=== PATIENT | male | born 1960 | race African-American/Black ===

== ENCOUNTER 2019-05-04 08:17 | Observation (INO) | payer OTHER, SELFPAY ==
[2019-05-04] VITALS (8 sets, daily range): BP systolic 125–151; BP diastolic 77–88; PULSE 89–128; RESP 16–26; TEMP 36.7–37.3; O2SAT 99–100; BMI 22.7
--- NOTE | 2019-05-04 08:30 | ED.GENADULT ---
HPI - General Adult General Chief complaint: Unspecified Stated complaint: LIGHTHEADED/BLEEDING STOMA Time Seen by Provider: 05/04/19 08:30 Source: patient Mode of arrival: EMS Limitations: no limitations History of Present Illness HPI narrative: Pt is 58 y/o male who presents to the ED, via EMS, with c/o blood in his colostomy bag. Pt states that he woke this morning and noticed blood on his bed sheets and when he checked his colostomy bag it was full of blood. He states that it took about 5-8 minutes until the bleeding stopped. Pt notes that he felt lightheaded/dizzy after the bleeding stopped. Pt has been having problems with his stoma and he saw his GI specialist 2 weeks ago about it and is supposed to get in contact with a home health nurse to help him manage it. He notes that he was having pain at his stoma site that subsided when he was resting. Pt has a H/o stage 4 colon CA and he states he had the colostomy, but no colon resection. He is supposed to see his oncologist, Dr. Rea in 2 days. complaint: Blood in colostomy bag Location: abdomen (stoma site) Associated symptoms: other (pain to stoma site) Treatments prior to arrival: none Related Data Home Medications Medication Instructions Recorded Confirmed morphine 15 mg PO Q12H 05/04/19 multivitamin [Tab-A-Kaden] 1 tablet PO DAILY 05/04/19 ondansetron 4 mg PO Q6H PRN 05/04/19 oxycodone-acetaminophen [Percocet] 1 tablet PO Q4H PRN 05/04/19 prochlorperazine maleate 10 mg PO Q4H PRN 05/04/19 ranitidine HCl 150 mg PO BID 05/04/19 Allergies Allergy/AdvReac Type Severity Reaction Status Date / Time No Known Allergies Allergy Verified 05/04/19 08:27 Review of Systems Review of Systems: All systems reviewed & are unremarkable except as noted in HPI and below Cardiovascular: Cardiovascular: Reports lightheadedness Gastrointestinal: Gastrointestinal: Reports other (blood in colostomy, pain to stoma) Neurologic: Reports dizziness PMFSH Past Medical History Medical History (Updated 05/04/19 @ 15:36 by Danielle Montiel MD) Colon cancer Colostomy in place Surgical History Surgical History (Updated 05/04/19 @ 10:20 by Leandra Lim) H/O colostomy H/O hernia repair Social History Social History (Updated 05/04/19 @ 10:20 by Leandra Lim) Smoking status: Former smoker Tobacco type: cigarettes Alcohol intake: never Substance use: never Gender identity (if verbalized by the patient): Male Spiritual care concerns: Yes Agree to blood products: No Comments Pt does not have a PCP. His oncologist is Dr. Rea in [facility]. Exam Const: General: cooperative, no acute distress and alert Nutritional Appearance: well nourished Orientation/consciousness: patient oriented x3 Limitations: no limitations HENMT: Mouth: Yes lip normal and Yes moist mucous membranes Chest: Chest palpation & inspection: other (port site to lt subclavian with no swelling or erythema) Resp: Effort & Inspection: normal respiratory effort Auscultation: clear to auscultation bilaterally Cardio: Rate: tachycardic (mildly) Rhythm: regular rhythm Heart sounds: no murmurs GI: GI Palp: Yes Soft to palpation and No Tenderness to palpation present (GI) Auscultation: normal bowel sounds Other: stoma to RLQ with no bleeding present, with a small amount of brown soft stool. Back/Spine/Pelvis: Back: no CVA tenderness Skin: General skin exam: normal color Neuro: General: patient oriented x3 Cognition (Neuro): normal cognition Speech: normal speech Extrem: General: normal to inspection, full ROM and no clubbing, cyanosis or edema Psych: Mental Status: mental status grossly normal Affect: normal affect Attitude: cooperative Course Course Emergency Course: Patient with report of bleeding from his colostomy stoma that subsided prior to arrival. No bleeding in the emergency department. Normal brown soft stool emanating from stoma. Patient has had drop
[2019-05-04 09:22] LABS: Basophils Absolute Auto 0.1 K/mm3 (0.0-0.1); Basophils Percent Auto 0.9 % (0.2-1.2); Eosinophils Absolute Auto 0.2 K/mm3 (0-0.3); Eosinophils Percent Auto 2.4 % (0-4.4); Hematocrit 25.8 % (42.0-52.0); Hemoglobin 8.1 g/dL (14.0-18.0); Immature Granulocyte Absolute 0.05 K/mm3 (0.00-0.031); Immature Granulocyte Percent A 0.7 % (0-0.5); Immature Platelet Fraction Pct 1.5 % (0.9-11.2); Lymphocytes Absolute Auto 2.09 K/mm3 (0.9-3.2); Mean Corpuscular HGB Conc 31.4 g/dl (32-36); Mean Corpuscular Volume 76.3 fl (80-100); Monocytes Absolute Auto 1.1 K/mm3 (0.1-0.6); Monocytes Percent Auto 16.1 % (2.6-8.5); Neutrophils Absolute Auto 3.3 K/mm3 (1.3-6.7); Neutrophils Percent Auto 48.9 % (45.5-73.1); Platelet Count Result 158 k/mm3 (150-375); Red Blood Count 3.38 M/mm3 (4.6-6.20); Red Cell Distribution Width 20.6 % (11.5-14.5); White Blood Count 6.8 K/mm3 (4.5-10.0)
[2019-05-04 09:30] LABS: INR 1.2; Prothrombin Time 14.9 Seconds (11.1-14.7)
[2019-05-04 09:31] LABS: Partial Thromboplastin Time 39.3 SECONDS (22.3-36.8)
[2019-05-04 09:40] LABS: Alanine Aminotransferase 26 U/L (4-50); Albumin Level 3.3 g/dL (3.5-5.1); Alkaline Phosphatase 221 U/L (38-126); Aspartate Amino Transferase 52 U/L (17-59); Blood Urea Nitrogen 9 mg/dL (9-20); Carbon Dioxide 22 mmol/L (22-30); Chloride 109 mmol/L (98-107); Estimated CRCL calculation 68 ml/min; Estimated Glomerular Filt Rate > 60; Glucose 97 mg/dL (75-110); Potassium 3.8 mmol/L (3.4-5.0); Sodium 140 mmol/L (137-145)
[2019-05-04] MEDS: LACTATED RINGERS 1,000 ML 999 ML IV CONT (09:45)
[2019-05-04 10:06] LABS: Add Urine Microscopic? YES; Appearance Urine Cloudy (Clear); Bilirubin Urine 1+ (Negative); Blood Urine Negative (Negative); Color Urine Amber (Yellow); Glucose Urine UA Negative (Negative); Hyaline Casts Urine 50+ /lpf; Ketones Urine Trace mg/dL (Negative); Leukocyte Esterase Ur Negative LEU/UL (Negative); Mucus Urine Heavy /lpf; Nitrate Urine Negative (Negative); Protein Urine 3+ mg/dL (Negative); RBC Urine 0-2 /hpf (0-2); Specific Grav Ur 1.028 (1.001-1.035)
[2019-05-04 12:39] LABS: Hematocrit 25.1 % (42.0-52.0); Hemoglobin 7.9 g/dL (14.0-18.0)
--- NOTE | 2019-05-04 14:59 | ADMGEN ---
This patient, Emil Crowe, was admitted to 2 Medical Room 260-. Patient/family oriented to hospital policies and general routines including ID bracelet, bed and alarms, visiting hours, pain management, procedures, bathroom and other care routines, personal items, smoking policy, room service/diet, and visiting hours. Valuables list has been completed. Information on how to activate the Rapid Response Team has been discussed. Patient/Family are encouraged to report perceived risks to care and to ask questions if they do not understand what they are told or what they should do.
--- NOTE | 2019-05-04 15:30 | PM.IMHP ---
H&P: HPI History of Present Illness Chief complaint: Bleeding stoma. Narrative: Emil Crowe is a very pleasant 58 year old male currently being treated for stage IV colon cancer who presented to the emergency department earlier this morning via EMS from home for evaluation of bleeding from his stoma. He woke this morning and went to use the restroom and upon his return back to bed he noticed that his shirt was wet. He turned the light on and saw that there was blood on his shirt and on his bed sheets. His ostomy bag was also reportedly full of blood. He removed the bag, and notes that there was blood ?squirting? from the stoma. The bleeding lasted upwards of 8 minutes. Thereafter he was lightheaded/dizzy upon standing and notes being nauseated and diaphoretic. He also mentions that he has been having pain on the right side of the stoma for nearly a month, and fact saw he he his surgeon who recommended him to see a stomal nurse, with an upcoming appointment on May 07. He was tachycardic on arrival to the emergency department he was found to have a hemoglobin of 8.1. The emergency department physician spoke with the patient's oncologist, Dr. Rea, who indicates that his hemoglobin 04/21/2019 was 10.1. He is being admitted in this setting to ensure he does not free bleed. The patient indicates that he is 1 of Jehovah's witnesses and thus cannot take blood products. He is feeling in his usual state of health at this time and has no complaints. Review of Systems Review of Systems: Narrative: Twelve systems were reviewed with pertinent positives and negatives as per HPI. No fever or chills. No recent cold or flu-like symptoms. He has been having issues with epistaxis, and recently body humidifier to see if that would help. No chest pain or shortness of breath. He has a history of hypertension, however lost 100 pounds since diagnosis of colon cancer and is no longer on medication for that. He denies vomiting. No dysuria. Except as documented, all other systems were reviewed and are negative. [facility] Past Medical History Medical History (Updated 05/04/19 @ 17:23 by Marlyn May PA-C) Colon cancer metastasized to multiple sites Imaging 05/04/2019 showed widespread metastatic disease to the lungs, lymph nodes, peritoneum, and T12 vertebral body. Hypertension Surgical History Surgical History (Updated 05/04/19 @ 17:16 by Marlyn May PA-C) Status post colostomy Status post inguinal hernia repair Status post partial colectomy Family History Family History Grandparent Diabetes mellitus Sibling Pulmonary embolism Sibling Cerebrovascular accident Hypertension Emphysema of lung Mother Heart attack Hypertension Father Bronchitis Emphysema of lung COPD (chronic obstructive pulmonary disease) Social History Social History (Updated 05/04/19 @ 17:17 by Marlyn May PA-C) Social History: Mr. Crowe is currently living with his sister in [place]. He designates his sister, Akila Dimas, as his surrogate decision maker. 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 He wishes to be a full code. He is 1 of Jehovah's witnesses. He smoked remotely as a teenager. He drinks alcohol once every couple of months. No drug use. Gender identity (if verbalized by the patient): Male Spiritual care concerns: Yes Agree to blood products: No Meds Home Medications and Allergies Home Medications Medication Instructions Recorded Confirmed Type morphine 15 mg PO Q12H 05/04/19 05/04/19 History multivitamin [Tab-A-Kaden] 1 tablet PO DAILY 05/04/19 05/04/19 History ondansetron 4 mg PO Q6H PRN 05/04/19 05/04/19 History oxycodone-acetaminophen [Percocet] 1 tablet PO Q4H PRN 05/04/19 05/04/19 History prochlorperazine maleate 10 mg PO Q4H PRN 05/04/19 05/04/19 History ranitidine HCl 150 mg PO BID 05/04/19
--- NOTE | 2019-05-04 16:00 | PC.NURSE ---
Patient's sister taking medication bottles home. Morphine and percocet bottles were given to sister to take home.
[2019-05-04 19:30] LABS: Hematocrit 23.9 % (42.0-52.0); Hemoglobin 7.5 g/dL (14.0-18.0)
[2019-05-04] MEDS: FAMOTIDINE 20 MG TABLET PO (20:35)
[2019-05-04] MEDS: SODIUM CHLORIDE NASAL GEL 14.1 GM 1 APPLIC NASAL (20:35)
[2019-05-04] MEDS: MORPHINE SULFATE 15 MG TABCR PO (20:35)
[2019-05-05 00:52] LABS: Hematocrit 19.9 % (42.0-52.0); Hemoglobin 6.2 g/dL (14.0-18.0)
[2019-05-05 06:00] VITALS: BP 107/62; PULSE 82; RESP 20; TEMP 36.7; O2SAT 98
[2019-05-05] MEDS: MORPHINE SULFATE 15 MG TABCR PO ×2 (08:44→20:59)
[2019-05-05] MEDS: FAMOTIDINE 20 MG TABLET PO ×2 (08:44→20:59)
[2019-05-05 09:03] LABS: Hematocrit 22.1 % (42.0-52.0)
[2019-05-05 09:09] LABS: Hemoglobin 6.9 g/dL (14.0-18.0)
[2019-05-05] MEDS: IRON SUCROSE COMPLEX 200 MG in SODIUM CHLORIDE 0.9% IV 50 ML 120 MG IVPB (11:03)
[2019-05-05] MEDS: MULTIVITAMINS THERAPEUTIC TAB (*BKC) 1 TABLET PO (11:03)
[2019-05-05 13:37] VITALS: BMI 22.7
[2019-05-05 14:00] VITALS: BP 144/85; PULSE 82; RESP 17; TEMP 36.6; O2SAT 100
[2019-05-05 14:27] LABS: Hemoglobin 5.8 g/dL (14.0-18.0)
[2019-05-05 14:28] LABS: Hematocrit 18.7 % (42.0-52.0)
--- NOTE | 2019-05-05 16:22 | PM.IMPN ---
Progress Note: A&P Assessment and Plan (1) Stomal bleeding: Status: Acute Assessment and Plan: Bleeding has ceased and he has had normal output since yesterday. No further bleeding overnight or today. He has referral to see a stoma nurse 05/07/19. (2) Anemia: Code(s): D64.9 - Anemia, unspecified Status: Acute Assessment and Plan: Patient has chronic anemia, with reported hemoglobin of 10.1 just 2 weeks ago. Now with evidence of acute blood loss anemia from stomal bleeding. He is a Jehov[employer]'s witnesses and thus will not receive blood products. IV iron x1 today and early tomorrow AM. Monitor H&H q6. H&H may have been diluted from port draw, discussed with nursing to perform venipuncture for H&H draws. (3) Colon cancer metastasized to multiple sites: Code(s): C18.9 - Malignant neoplasm of colon, unspecified Status: Acute Assessment and Plan: Follows with Dr Jeremiah Rea. Noted to have widespread metastatic disease to lungs, lymph nodes, spine. Reports he is still undergoing chemotherapy. He is adamant about making it to his early appointment tomorrow morning with Dr. Rae. Subjective Date/time seen: 05/05/19 1030 Interval history: Mr. Crowe is a 58yo M with metastatic colon cancer admitted for anemia. He noted he was having bleeding from his stoma site two days ago which has now resolved. He reports feeling well today and has no complaints. He is quite eager to get to his oncology appointment early tomorrow morning. He is agreeable to IV iron and staying overnight, may be able to discharge early AM if Hgb is stable. He is a [employer] and cannot receive blood products. He denies chest pain, shortness of breath, nausea, or vomiting. He is tolerating PO intake. Review of Systems Review of Systems: Narrative: Twelve systems were reviewed with pertinent positives and negatives as per HPI. Exam Narrative: Exam Narrative: General: Male walking in the room in no acute distress. HEENT: Normocephalic, EOMI, oral mucosa moist. Cardiovascular: Rate and rhyhtm are regular. Respiratory: Lungs clear to auscultation all key. Non-labored breathing. Abdomen: Soft, non-tender, non-distended, bowel sounds present. Stoma pink, nonbloody stool noted in ostomy bag. Extremities: Peripheral pulses intact. No edema. Neuro: No focal neurological deficits. Speech is clear. Objective Data Vital Signs Vital Signs: Last Vital Signs Temp 97.9 F 05/05/19 14:00 Pulse 82 05/05/19 14:00 Resp 17 05/05/19 14:00 BP 144/85 H 05/05/19 14:00 Pulse Ox 100 05/05/19 14:00 Intake/Output Intake/Output: Intake & Output 05/02/19 05/03/19 05/04/19 05/05/19 23:59 23:59 23:59 23:59 Intake Total 1440 830 Output Total 400 Balance 1440 430 Meds/Results Medications: Active Medications Generic Name Dose Route Start Last Admin Trade Name Freq PRN Reason Stop Dose Admin Famotidine 20 mg 05/04/19 21:00 05/05/19 08:44 Pepcid PO 20 mg Q12HR FREDERIC Administration Heparin Sodium (Beef Lung) 50 units 05/04/19 09:00 05/05/19 08:29 Heparin Flush 50 Units/5 Ml IV PUSH 50 units QAM FREDERIC Administration Heparin Sodium (Beef Lung) 50 units 05/04/19 08:39 Heparin Flush 50 Units/5 Ml IV PUSH PRN PRN after intermittent infusion Heparin Sodium (Beef Lung) 50 units 05/04/19 08:39 05/04/19 15:35 Heparin Flush 50 Units/5 Ml IV PUSH 50 units PRN PRN Administration after blood draws Heparin Sodium (Porcine) 500 units 05/04/19 08:39 Heparin Sod Flush 100 Units/Ml IV PUSH PRN PRN see comments below Iron Sucrose 100 mg/ Sodium 55 mls @ 220 mls/hr 05/06/19 06:00 Chloride IVPB QAM FREDERIC Morphine Sulfate 15 mg 05/04/19 21:00 05/05/19 08:44 Ms Contin PO 15 mg Q12HR FREDERIC Administration Multivitamins Therapeutic
[2019-05-05 17:58] LABS: Hematocrit 19.3 % (42.0-52.0); Hemoglobin 6.1 g/dL (14.0-18.0)
--- NOTE | 2019-05-05 18:06 | PC.NURSE ---
Spoke with Carito from lab regarding patient critical H&H. Per Carito, sample looks diluted. Called SARITA Barrera asked if she would like the lab redrawn due to possible dilution. Per SARITA Barrera have lab redraw H&H lab now via venipuncture and have lab draw other H&H labs via venipuncture.
[2019-05-05 18:21] LABS: Hematocrit 24.7 % (42.0-52.0); Hemoglobin 7.7 g/dL (14.0-18.0)
[2019-05-05] MEDS: SODIUM CHLORIDE NASAL GEL 14.1 GM 1 APPLIC NASAL (21:00)
[2019-05-05 22:00] VITALS: BP 123/70; PULSE 80; RESP 16; TEMP 36.3; O2SAT 100
[2019-05-06 00:36] LABS: Hematocrit 19.6 % (42.0-52.0); Hemoglobin 6.2 g/dL (14.0-18.0)
[2019-05-06 05:30] LABS: Basophils Percent Auto 0.5 % (0.2-1.2); Eosinophils Absolute Auto 0.2 K/mm3 (0-0.3); Eosinophils Percent Auto 3.9 % (0-4.4); Immature Granulocyte Absolute 0.03 K/mm3 (0.00-0.031); Immature Granulocyte Percent A 0.7 % (0-0.5); Immature Platelet Fraction Pct 1.2 % (0.9-11.2); Lymphocytes Absolute Auto 1.51 K/mm3 (0.9-3.2); Lymphocytes Percent Auto 36.6 % (18.3-44.2); Mean Corpuscular HGB Conc 31.6 g/dl (32-36); Mean Corpuscular Hemoglobin 24.1 pg (26-34); Mean Corpuscular Volume 76.3 fl (80-100); Monocytes Absolute Auto 0.6 K/mm3 (0.1-0.6); Neutrophils Absolute Auto 1.8 K/mm3 (1.3-6.7); Neutrophils Percent Auto 43.3 % (45.5-73.1); Platelet Count Result 114 k/mm3 (150-375); Red Blood Count 2.45 M/mm3 (4.6-6.20); Red Cell Distribution Width 19.8 % (11.5-14.5); White Blood Count 4.1 K/mm3 (4.5-10.0)
[2019-05-06 05:41] LABS: Hemoglobin 5.9 g/dL (14.0-18.0)
[2019-05-06 05:42] LABS: Hematocrit 18.7 % (42.0-52.0)
[2019-05-06] MEDS: IRON SUCROSE COMPLEX 100 MG in SODIUM CHLORIDE 0.9% IV 50 ML 220 MG IVPB (05:55)
[2019-05-06 06:00] VITALS: BP 122/60; PULSE 77; RESP 16; O2SAT 100
[2019-05-06] MEDS: MORPHINE SULFATE 15 MG TABCR PO (08:06)
[2019-05-06] MEDS: FAMOTIDINE 20 MG TABLET PO (08:06)
[2019-05-06] MEDS: MULTIVITAMINS THERAPEUTIC TAB (*BKC) 1 TABLET PO (08:06)
--- NOTE | 2019-05-06 21:37 | PM.DS ---
DS: Diagnosis Admitting Diagnosis Admitting Diagnosis: Anemia, unspecified Discharge Diagnosis (1) Stomal bleeding: Status: Acute Assessment and Plan: Date of Service 05/06/19 Mr. Crowe is a 58yo M currently being treated for stage IV colon cancer who presented to the emergency department for evaluation of bleeding from his stoma. He reported his stoma bag was full of blood 05/04/19. He reported he had been having pain near his stoma for a few weeks. He reports he saw his surgeon for this and he is scheduled to see a stoma nurse 05/07/19. Hgb on arrival was 8.1 and fluctuated, as low as 5.8. 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 He was, however, agreeable to receiving IV iron. His oncologist is Dr. Jeremiah Rea and he was scheduled for outpatient appointments 05/05 and 05/06 for chemotherapy. Patient's bleeding had resolved and he was asymptomatic. He was quite eager for discharge so that he could go to his oncology appointment. He received 2 doses of IV iron and last H&H at discharge were 5.9, 18.7 %. Recommend short interval follow-up for repeat labs with results to go to Dr. Rea, or he may order other labs at his appointment today. Patient was hemodynamically stable aside from his H&H with instructions to attend his oncology appointment that was scheduled for a few hours after discharge. Educated on return to ER instructions for worsening or concerning symptoms. Bleeding has ceased and he has had normal output since yesterday. No further bleeding overnight or today. Follow-up with oncology today. He has referral to see a stoma nurse 05/07/19. (2) Anemia: Code(s): D64.9 - Anemia, unspecified Status: Acute Assessment and Plan: Patient has chronic anemia, with reported hemoglobin of 10.1 just 2 weeks ago. Now with evidence of acute blood loss anemia from stomal bleeding. He is a Judaism and thus will not receive blood products. IV iron x 2 prior to discharge. (3) Colon cancer metastasized to multiple sites: Code(s): C18.9 - Malignant neoplasm of colon, unspecified Status: Acute Assessment and Plan: Follows with Dr Jeremiah Rea. Noted to have widespread metastatic disease to lungs, lymph nodes, spine. Reports he is still undergoing chemotherapy. He is adamant about making it to his appointment this morning with Dr. Rea. DS: Summary Time Spent with Patient Time attestation: Total time spent providing and/or coordinating discharge services: 40 minutes Exam Narrative: Exam Narrative: General: Male resting supine in bed in no acute distress. HEENT: Normocephalic, EOMI, oral mucosa moist. Cardiovascular: Rate and rhythm are regular. Respiratory: Lungs clear to auscultation all key. Non-labored breathing. Abdomen: Soft, non-tender, non-distended, bowel sounds present. Stoma pink, nonbloody stool noted in ostomy bag. Extremities: Peripheral pulses intact. No edema. Neuro: No focal neurological deficits. Speech is clear. DS: Data Data Completed and Pending Labs on day of discharge: Labs from last 24 hours 05/06/19 05/06/19 05:12 00:21 WBC 4.1 L RBC 2.45 L Hgb 5.9 L* 6.2 L* Hct 18.7 L* 19.6 L* MCV 76.3 L MCH 24.1 L MCHC 31.6 L RDW 19.8 H Plt Count 114 L MPV TNP Immature Gran % (Auto) 0.7 H Neut % (Auto) 43.3 L Lymph % (Auto) 36.6 Boyle % (Auto) 15.0 H Eos % (Auto) 3.9 Baso % (Auto) 0.5 Lymph # (Auto) 1.51 Boyle # (Auto) 0.6 Eos # (Auto) 0.2 Baso # (Auto) 0.0 Abs Immat Gran (auto) 0.03 Absolute Neuts (auto) 1.8 Absolute Nucleated RBC 0.0 Nucleated RBC % 0.0 % Immature Plt Fraction 1.2 Preliminary micro results at discharge 05/04/19 19:16 Blood Culture - Preliminary Blood 05/04/19 19:16 Blood Culture - Preliminary Blood Discharge Plan Disc
== END 2019-05-06 09:55 | disposition home or self-care (01) ==
LOC: ANHED 12:17 → ANH3MEDSUR 13:22 → ANH3MED 13:24 → ANH2MED 13:50
PROVIDERS: Physician Assistant; Admitting Provider Family Medicine; Emergency Provider Emergency Medicine; PCP Internal Medicine Medical Oncology; Visit Provider Family Medicine
DX: D62 Acute posthemorrhagic anemia (principal); K94.01 Colostomy hemorrhage; C18.9 Malignant neoplasm of colon, unspecified; C78.00 Secondary malignant neoplasm of unspecified lung; C77.9 Secondary and unspecified malignant neoplasm of lymph node, unspecified; C78.6 Secondary malignant neoplasm of retroperitoneum and peritoneum; C79.51 Secondary malignant neoplasm of bone; Z23 Encounter for immunization; Z86.79 Personal history of other diseases of the circulatory system
CPT/HCPCS: 36415; 80053; 81001; 85014; 85018; 85025; 85055; 85610; 85730; 86850; 86900; 86901; 86923; 87040; 87086; 90471; 90686; 96361; 96365; 96374; 99285; A9270; G0008; G0378; G0379; J1642; J1756; J7120